=== PATIENT | male | born 1950 | race Caucasian/White ===

== ENCOUNTER 2023-10-05 08:27 | Day surgery (SDC) | payer MEDICARE, OTHER, SELFPAY ==
[2023-10-05] VITALS (8 sets, daily range): BP systolic 119–161; BP diastolic 81–108; BMI 26.3
[2023-10-05 09:51] LABS: Glucose - Point of Care 110 mg/dl (70-99)
[2023-10-05 12:00] LABS: ACT-LR - POC 377 Seconds (116-155)
--- NOTE | 2023-10-05 12:32 | ITS.CL.ABL ---
Copywriter - Ablation
Ablation
Procedure Report:
AFIB ablation:
Mr. Darling is a very pleasant 72 yr old gentleman with h/o persistent Af s/p AF ablation in 08/09/2019 that included pulmonary veins isolation, roof line flutter ablation, focal atrial tach ablation and superior lorna cava isolation, has gone into
recurrent atrial tachycardia / flutter and presented today to the EP lab for atrial fibrillation / flutter ablation.
Date of Procedure:
10/05/2023
Indications:
Recurrent atrial fibrillation / atrial flutter / Atrial tachycardia
Pre-Operative Diagnosis:
Atrial flutter / Atrial tachycardia
Post-Operative Diagnosis:
Atrial flutter / Atrial tachycardia
Procedure Performed:
Redo atrial fibrillation ablation with posterior wall isolation
Left atrial anterior wall atypical atrial flutter ablation for liv-mitral flutter ablation
Biatrial atrial flutter ablation
Performing Physician:
Holden Ferguson MD
Assistants:
EP staff
Anesthesia:
See anesthesia records
Detailed Description of the Procedure:
Written informed consent was obtained from the patient after a full explanation of the risks and benefits of the procedure including the risks of sedation and anesthesia.
The patient was brought to the electrophysiology laboratory in stable condition in fasting state. Continuous electrocardiographic and hemodynamic monitoring was initiated.
The initial rhythm was atrial flutter.
Time out:
The procedure site was meticulously prepared with surgical scrub and allowed to dry with no pooling. Sterile draping was applied to cover the procedure site. The image intensifier was draped with sterile bag and positioned over the patient.
Prior to the start of the procedure a surgical pause was performed with in agreement from anesthesia, EP staff with double identifier and explanation of the procedure, plan and site of the procedure stated with allergies and medications and
pertinent labs reviewed.
After infusion of local anesthetic, vascular access was obtained under ultrasound guidance and sheaths were placed over guide wire as detailed below.
Sheaths:
��������������� Agilis sheath in right femoral vein upgraded from 8Fr in right femoral vein
��������������� 9Fr in right femoral vein
��������������� 7fr in right femoral vein
Catheters:
��������������� ������������� 3.5mm force sensing irrigated Thermocool STSF DF Bidirectional - at locations of HRA, LA, LV and CS.
��������������� ������������� Penta-ray mapping catheter � at locations of RA, LA
��������������� ������������� ICE catheter - at locations of RA, SVC, and RV.
��������������� ������������� Decapolar Bard catheter � at locations of RA and CS
A 7000 units of heparin was given
Intracardiac ECHO:
An 8-[place] AcuNav intracardiac ECHO (ICE) probe was advanced through the 9-[place] sheath in the right femoral vein into the right atrium under fluoroscopic and ICE ultrasound image guidance and a baseline ECHO study was performed. The left atrial
size was severely dilated. There was trace tricuspid regurgitation. There was mild mitral regurgitation. There was small mitral valve noted consistent with at least moderate mitral stenosis. The aortic valve was grossly normal. There was normal left
ventricular size and function. There is trace pericardial effusion. All the four veins were identified and has good flow identified. There was dense spontaneous contrast noted at the mouth of the TISH. No definite clot seen.�
During the procedure, ICE was used for monitoring of complications, guidance of trans-septal puncture, monitor the catheter position and tracking ablation lesions. No change in the pericardial space noted throughout the procedure.
Right atrial flutter mapping:
The flutter was mapped in the right atrium. The CTI line was intact. The earliest point in the right atrium was at the inferior wall of the septum with the rest of the atrium depolarizing passively. The full cycle length of the tachycardia was not
present in the right atrium. With significant amount of tachycardia missing from the cyclic and passive atrial depolarization, decision was made to map the left atrium.
Trans-septal Puncture:
Heparin was initiated and infused to maintain appropriate ACT. A J-tipped guidewire was advanced through the 8-[place] sheath in the right femoral vein into the superior vena cava under fluoroscopic and ICE guidance. The 8-[place] sheath was exchanged
for an Agilis sheath which was advanced into the superior vena cava. A BRK transseptal needle was advanced until the tip was slightly behind the tip of the dilator inside the Agilis sheath. The apparatus was withdrawn until it was in contact with
the fossa ovalis. The position was adjusted based on fluoroscopy and ultrasound images from ICE. Under fluoroscopic, hemodynamic and ICE ultrasound guidance, left atrium was cannulated by advancing the needle. Once atrial septum was cannulated, the
needle was pulled back and a BMW guide wire was advanced through the needle into the left atrium. The guide wire was advanced into the left superior pulmonary vein. Both the sheath and the dilator was advanced into the left atrium. The dilator with
the needle was withdrawn. Blood was aspirated from the Agilis sheath and arterial blood confirmed. The sheath was flushed. Saline injection noted into the left atrium on ICE. The mapping catheter was advanced in the Agilis sheath into the left
pulmonary vein. Left atrial pressure was measured and elevated V wave noted likely showing at least moderate mitral regurgitation.
3D Electroanatomic Mapping:
Using the Pentaray catheter advanced through Agilis sheath into the left atrium, an electroanatomic map (EAM) of the left atrium was created using Carto mapping system. The map was used for localization of catheter position and tacking of ablation
lesions.
The EAM of the left atrium showed 4 pulmonary veins with all 4 veins electrically isolated from the body the LA. The left atrial roof was also completely silent consistent with her previous ablation. No sign of reconnections noted.
It showed extensive scar on the posterior and anterior wall of the LA with only occasional area of atrial electrical activity. The LA was dilated in size.
The atrial flutter was mapped and was appeared to be atypical flutter involving both the atria.� The distal left atrium was out of the tachycardia but the proximal CS was in the tachycardia.� Anterior wall of the left atrium was actively involved in
the tachycardia cycle length with the posterior wall and floor of the atrium only passively depolarized.
Following the EAM, preparation were made for ablation.
Ablation:
Ablation # 1: Left atrial anterior wall tachycardia ablation for liv-mitral flutter ablation
Tachycardia was mapped and was coming from anterior wall of the left atrium at 300 ms. The tachycardia was mapped again and was noted to be mitral valve dependent. Mitral valve was again mapped. Mitral line was done for the mitral isthmus and again
at the anterior wall of the left atrial appendage. Tachycardia degenerated into 360 ms.
Ablation # 2: Biatrial atrial flutter ablation
Tachycardia was again mapped and earliest point was noted to be at the Chantelle bundle escaping from the right side involving both atria. There is no other significant activity left on the left atrial posterior wall and small activity at the left
atrial anterior wall was enough to sustain this arrhythmia.� Leilani bundle was ablated.
Left atrial was again mapped and no activity in the pulmonary veins and posterior wall was noted. Left atrial appendage was still have significant electrical activity.
Ablation #3: Posterior wall isolation for atrial fibrillation
Patient is persistent atrial fibrillation with significant scar in the posterior wall. He was here with recurrent atrial fibrillation/flutter. With still fractionated signal present at the posterior wall, decision was made to isolate the posterior
wall. A series of ablation was placed connecting the left inferior pulmonary vein to the right inferior pulmonary vein at the floor of the left atrium.
Once again sick sinus syndrome noted but was paced with a pacemaker from the right atrium.
The AV jessica functions are deemed within normal range. �
All PVI were rechecked at the end of the case and remained isolated with dissociated and local capture with pacing. Entrance and exit block were demonstrated.
Procedure End
ICE study was done again that showed no epicardial accumulation. No complications noted.
Following the completion of the EP study, catheters were removed. Protamine 40 mg was given at the end of the procedure and ACT was checked repeatedly. The sheaths were removed and hemostasis achieved with manual compression after acceptable ACT is
achieved.
Left atrial Pressure:
Pre-Procedure: Mean LA pressure was 9mmHg
Post-Procedure: Mean LA pressure was 12mmHg
Pre-Procedure: Mean RA pressure was 6mmHg
Estimated Blood loss:
<10 cc
Specimens Removed:
None.
Implants / Devices:
None
Urine output:
None
Packs / Drains/ Tubes:
None
Instrument / Sponge Count Correct:
Yes
Complications of the Procedure:
None
Condition of Patient at Time of Transfer:
Hemodynamically stable with no neurological or vascular compromise.
Summary:
Successful redo atrial fibrillation ablation with posterior wall isolation, Liv-mitral flutter ablation, Biatrial atrial flutter ablation
[2023-10-05 14:47] LABS: ACT-LR - POC > 397 Seconds (116-155)
--- NOTE | 2023-10-05 17:07 | W.PN.UPDATE ---
Update Note
Progress Note Update
Pt seen post AFlutter/LAPW ablation. Right groin site with vascade closure, no ht/bleeding. OOB ambulating, urinating without difficulty. Post EKG SR w/intermittent APacing 80s. Resume eliquis tonight. Followup at [facility] as scheduled. Home today if
groin site/tele remain stable.
== END 2023-10-05 16:05 | disposition home or self-care (01) ==
LOC: CATH 08:27
PROVIDERS: ATTENDING PHYSICIAN Internal Medicine Cardiovascular Disease; FAMILY PHYSICIAN Family Medicine
DX: I48.19 Other persistent atrial fibrillation (principal); I48.4 Atypical atrial flutter; I48.92 Unspecified atrial flutter; Z79.01 Long term (current) use of anticoagulants; E11.40 Type 2 diabetes mellitus with diabetic neuropathy, unspecified; I12.9 Hypertensive chronic kidney disease with stage 1 through stage 4 chronic kidney disease, or unspecified chronic kidney disease; E11.22 Type 2 diabetes mellitus with diabetic chronic kidney disease; N18.9 Chronic kidney disease, unspecified; Z87.891 Personal history of nicotine dependence; I49.5 Sick sinus syndrome
CPT/HCPCS: 93655; C1769; C1894; C1730; C1732; C1766; C1759; 76937; 82962; 85347; 93005; 93656; C1760

== ENCOUNTER → 2023-11-26 06:55 | Day surgery (SDC) | payer MEDICARE, OTHER, SELFPAY ==
[2023-11-26 07:43] VITALS: BMI 25.0
== END ==
LOC: CATH 06:55
PROVIDERS: ATTENDING PHYSICIAN Internal Medicine Cardiovascular Disease; FAMILY PHYSICIAN Family Medicine; OTHER PHYSICIAN Internal Medicine Cardiovascular Disease
DX: I48.0 Paroxysmal atrial fibrillation (principal); I48.4 Atypical atrial flutter; I49.5 Sick sinus syndrome; Z95.0 Presence of cardiac pacemaker; I10 Essential (primary) hypertension; E11.9 Type 2 diabetes mellitus without complications; Z87.891 Personal history of nicotine dependence; Z79.01 Long term (current) use of anticoagulants; Z79.84 Long term (current) use of oral hypoglycemic drugs
CPT/HCPCS: 92960; 93005

== ENCOUNTER → 2024-01-12 07:38 | Outpatient (REF) | payer MEDICARE, OTHER, SELFPAY | LOC: DHCBC/DCA 07:38 | PROVIDERS: ATTENDING PHYSICIAN Nurse Practitioner; FAMILY PHYSICIAN Family Medicine | DX: I48.0 Paroxysmal atrial fibrillation (principal); I49.5 Sick sinus syndrome; Z95.0 Presence of cardiac pacemaker; R06.09 Other forms of dyspnea | CPT/HCPCS: 78452; 93017; A9500; J2785 ==

== ENCOUNTER 2024-06-21 14:04 | Inpatient (IN) | payer MEDICARE, OTHER, SELFPAY ==
[2024-06-21 14:25] VITALS: BP 133/91
[2024-06-21 14:28] VITALS: BMI 24.8
[2024-06-21 15:29] VITALS: BP 139/97
--- NOTE | 2024-06-21 15:38 | W.PN.CD ---
Addendum entered and electronically signed by Johny Dennis MD 06/21/24 16:21:
I saw and examined the patient.
The HEALTH CARE LIAISON's note was reviewed and I agree with the note.
Comment: QTc is challenging with his flutter. But manual measurement looks OK to begin Dofetilide. CrCl 25 will support 125 mcg q12 but if falls to less than 20 then will need to stop dofetilide. Monitor carefully.
Original Note:
Today's Communication / Plan
-
This is the summary. Please see scanned H&P.
Await BMP and initiate dofetilide
Impression / Plan
-
IMPRESSION/PLAN: 73M with paroxysmal atrial fibrillation/flutter status post ablation 08/11/2019, with redo ablation 10/05/2023 for atypical atrial flutter (anterior wall of the left atrium, mitral isthmus, biatrial atrial flutter),
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 He was found to have a high atrial fibrillation burden on his device and endorsed fatigue
and MC
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
Paroxysmal atrial fibrillation
Typical atrial flutter
-He appears to be in typical atrial flutter on telemetry
-Oral anticoagulation: Apixaban 5 mg twice daily, he denies missed doses and abnormal bleeding
-BMP pending, initiation of dofetilide after dose has been calculated based on renal function
-Dofetilide loading per protocol
-If dofetilide does not decrease atrial fibrillation burden, patient is agreeable to repeat ablation
Chronic kidney disease, BMP prior to initiation of dofetilide
[facility] dual-chamber PPM, followed in our device clinic in the outpatient setting
Type 2 diabetes mellitus, continue glipizide
HLD, on pravastatin
Physical Exam
Vital Signs/Labs
Vital Signs
Temp Pulse Resp BP Pulse Ox
97.2 F 102 18 139/97 99
06/21/24 14:28 06/21/24 15:30 06/21/24 14:28 06/21/24 15:29 06/21/24 14:28
06/20/24 06/21/24 06/22/24
06:59 06:59 06:59
Actual Weight 78.4 kg
Physical Exam
Constitutional: No acute distress and Comfortable
EENT: Anicteric and Moist mucous membranes
Cardiovascular: Rhythm & rate is regular, Pedal edema is absent and S1S2 is normal
Respiratory: Respiratory effort normal and Lungs clear to auscul.
GI: Soft, Distention absent, Flat, Non tender and Normal bowel sounds
Neuro/Psych: AO x 3
Other: Skin (Warm and dry)
Data Reviewed
-
Date of Service: June 21, 2024
--- NOTE | 2024-06-21 16:03 | W.CARD.TIKOS ---
Initiate Tikosyn
-
I verify that the patient has not taken any verapamil (Isoptin/Calan), ketoconazole (Nizoral), cimetidine (Tagamet), trimethoprim (Trimpex), trimethoprim/sulfamethoxazole (Bactrim), megesterol (Megace), prochlorperazine (Compazine),
hydrochlorothiazide (HCTZ), dolutegravir (Tivicay) or any Class I or Class III anti-arrhythmic within the last three days
AND
I verify that the patient has not taken amiodarone within the last THREE months, or that the patient's amiodarone plasma concentration is <0.3 mcg/mL.
I have assessed the baseline QTc interval (using QT for heart rate less than 60 bpm) and deemed the patient is appropriate for Dofetilide therapy. I understand that Tikosyn is contraindicated if the QTc is >440msec (500msec in patients with
ventricular conduction abnormalities).
Baseline QTc (in msec): 421
Reason for Administration with Prolonged QTc: Paced Rhythm
Ordering Physician: Holden Ferguson
[2024-06-21 16:12] LABS: Blood Urea Nitrogen 54 mg/dl (9-20); Calcium 9.3 mg/dl (8.4-10.2); Carbon Dioxide 23 mmol/L (22-30); Chloride 106 mmol/L (98-107); Estimated Creatinine Clearance 25 ml/min; Glucose 107 mg/dl (70-99); Potassium 4.7 mmol/L (3.5-5.1); Sodium 141 mmol/L (135-145); eGFR 23.24
[2024-06-21 17:07] VITALS: BMI 24.8
[2024-06-21] MEDS: TIKOSYN 125 MCG PO (18:04)
[2024-06-21 19:11] VITALS: BP 124/87
[2024-06-21] MEDS: OCUVITE SOFTGEL 1 CAP PO (19:26)
[2024-06-21] MEDS: ELIQUIS 5 MG PO (19:26)
[2024-06-21] MEDS: PRAVACHOL 20 MG PO (22:41)
[2024-06-21 22:44] VITALS: BP 136/95
--- NOTE | 2024-06-22 00:31 | PTCARENOTE ---
Received patient at change of shift. Afib on the monitor, HR in the 90-100s. Discussed plan of care with patient, patient verbalizes understanding. No complaints from pt at this time, call glass within reach.
--- NOTE | 2024-06-22 02:07 | DOWNTIME ---
There was a [employer] Client Telecine Operator Downtime on 06/22/2024 from 0100 to 06/22/2023 at 0205 . Downtime documentation of patient's care, including medication administrations, has been reconciled in the electronic record per guidelines. Refer to the
patient's paper chart under the miscellaneous tab to see printed paper medication records and downtime forms.
[2024-06-22 04:18] VITALS: BP 128/92
[2024-06-22 06:00] VITALS: BMI 24.3
[2024-06-22] MEDS: TIKOSYN 125 MCG PO ×2 (06:06→18:27)
--- NOTE | 2024-06-22 07:53 | W.PN.CD ---
Today's Communication / Plan
-
- qtc 487. monitor closely. cautious dosing with creatinine 2.8. will need to follow creatinine closely. Dr Ferguson to review. Repeat creatinine today
plan for CV tomorrow
Impression / Plan
-
IMPRESSION/PLAN: 73M with paroxysmal atrial fibrillation/flutter status post ablation 08/11/2019, with redo ablation 10/05/2023 for atypical atrial flutter (anterior wall of the left atrium, mitral isthmus, biatrial atrial flutter),
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 He was found to have a high atrial fibrillation burden on his device and endorsed fatigue
and MC
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
Paroxysmal atrial fibrillation
atrial flutter
-HR 100
-Oral anticoagulation: Apixaban 5 mg twice daily, he denies missed doses and abnormal bleeding
- dofetilide 125 mg basedon renal function
-per notes If dofetilide does not decrease atrial fibrillation burden, patient is agreeable to repeat ablation
- qtc 487. monitor closely. cautious dosing with creatinine 2.8. will need to follow creatinine closely. Dr Ferguson to review. Repeat creatinine today
Chronic kidney disease, BMP prior to initiation of dofetilide
[facility] dual-chamber PPM, followed in our device clinic in the outpatient setting
Type 2 diabetes mellitus, continue glipizide
HLD, on pravastatin
Physical Exam
Vital Signs/Labs
Vital Signs
Temp Pulse Resp BP Pulse Ox
97.8 F 98 18 128/92 100
06/22/24 04:20 06/22/24 04:18 06/22/24 04:20 06/22/24 04:18 06/22/24 04:20
06/21/24 06/22/24 06/23/24
06:59 06:59 06:59
Actual Weight 76.7 kg
06/21/24 15:33
Physical Exam
Constitutional: No acute distress
Cardiovascular: Rhythm & rate is regular
Respiratory: Respiratory effort normal
GI: Soft
Neuro/Psych: Alert
Data Reviewed
-
Date of Service: June 22, 2024
Medical Decision Making: Reviewed Test Results
Echo: Report Reviewed by me
X-Ray/CT/US/MRI/NUC/PET: Report Reviewed by me
Medical Tests (PFT, Pathology etc): Image Personally Visualized and interpreted
Labs: Labs Reviewed by me
[2024-06-22 08:05] VITALS: BP 146/98
[2024-06-22] MEDS: OCUVITE SOFTGEL 1 CAP PO ×2 (08:51→19:38)
[2024-06-22] MEDS: GLUCOTROL 2.5 MG PO (08:51)
[2024-06-22] MEDS: ELIQUIS 5 MG PO ×2 (08:51→19:38)
[2024-06-22] MEDS: ZYLOPRIM 50 MG PO (08:52)
[2024-06-22] MEDS: NORVASC 5 MG PO (08:52)
[2024-06-22] MEDS: TOPROL XL 50 MG PO (08:52)
--- NOTE | 2024-06-22 09:30 | PTCARENOTE ---
Assumed care of pt from night RN. Pt received awake and alert, Ox3. VSS, CM shows NSR 100's, POX 98% on RA. EKG done after 2nd dose of Tikosyn, shows Qtc of 467. Pt denies any pain or discomfort, ambulating frequently in room.
[2024-06-22 09:39] LABS: Blood Urea Nitrogen 47 mg/dl (9-20); Calcium 9.4 mg/dl (8.4-10.2); Carbon Dioxide 24 mmol/L (22-30); Chloride 103 mmol/L (98-107); Estimated Creatinine Clearance 26 ml/min; Glucose 108 mg/dl (70-99); Phosphorus 4.1 mg/dl (2.5-4.5); Potassium 4.1 mmol/L (3.5-5.1); Sodium 142 mmol/L (135-145); eGFR 24.28
[2024-06-22 09:43] LABS: Albumin 5.1 g/dl (3.5-5.0); Blood Urea Nitrogen 47 mg/dl (9-20); Calcium 9.5 mg/dl (8.4-10.2); Carbon Dioxide 25 mmol/L (22-30); Chloride 103 mmol/L (98-107); Estimated Creatinine Clearance 26 ml/min; Glucose 109 mg/dl (70-99); Potassium 4.3 mmol/L (3.5-5.1); Sodium 143 mmol/L (135-145); eGFR 24.28
[2024-06-22 12:03] VITALS: BP 118/88
--- NOTE | 2024-06-22 15:10 | CM ---
CM following for DC planning needs.
Met w/ patient and spouse at bedside to complete initial assessment.
Pt. resides w/ spouse in a private, 2 story home w/ 4 TON[address]. Functionally, patient is indep. at baseline w/ ADLs, mobility without the use of any assisted device. There is no other DME in the home.
Pt. has RX plan and uses [facility] [address] in [place].
Plan is for DC to home without needs.
Will remain avail.
[2024-06-22 15:32] VITALS: BP 131/98
[2024-06-22 18:49] VITALS: BP 127/85
--- NOTE | 2024-06-22 20:42 | PTCARENOTE ---
Patient received at change of shift resting comfortably in the bed. Patient is without complaints at this time. Atrial fibrillation on monitor and storage bin tender. Patient denies palpitations and/or chest pain. Two hour post Tikosyn ECG completed per order,
Qtc 474. Denies difficulty breathing. Oxygen saturation 97-98% on room air. Plan of care discussed with patient. Call glass within reach. Care ongoing.
[2024-06-22 22:21] VITALS: BP 139/94
[2024-06-22] MEDS: PRAVACHOL 20 MG PO (22:22)
[2024-06-23] VITALS (7 sets, daily range): BP systolic 116–131; BP diastolic 75–99; BMI 24.7
[2024-06-23 02:57] LABS: Albumin 3.9 g/dl (3.5-5.0); Blood Urea Nitrogen 60 mg/dl (9-20); Calcium 8.8 mg/dl (8.4-10.2); Carbon Dioxide 23 mmol/L (22-30); Chloride 106 mmol/L (98-107); Estimated Creatinine Clearance 26 ml/min; Glucose 132 mg/dl (70-99); Phosphorus 4.4 mg/dl (2.5-4.5); Potassium 4.3 mmol/L (3.5-5.1); Sodium 138 mmol/L (135-145); eGFR 24.28
[2024-06-23] MEDS: TIKOSYN 125 MCG PO ×2 (06:18→18:04)
[2024-06-23] MEDS: OCUVITE SOFTGEL 1 CAP PO ×2 (08:20→21:11)
[2024-06-23] MEDS: ELIQUIS 5 MG PO ×2 (08:21→21:11)
[2024-06-23] MEDS: TOPROL XL 50 MG PO (08:21)
[2024-06-23] MEDS: NORVASC 5 MG PO (08:22)
[2024-06-23] MEDS: ZYLOPRIM 50 MG PO (08:28)
--- NOTE | 2024-06-23 11:06 | PTCARENOTE ---
Pt sent for CV today, NPO except meds.
--- NOTE | 2024-06-23 11:21 | W.PN.CD ---
Today's Communication / Plan
-
DCCV today
continue eliquis and tikosyn with monitoring of tele and EKG
Impression / Plan
-
IMPRESSION/PLAN: 73M with paroxysmal atrial fibrillation/flutter status post ablation 08/11/2019, with redo ablation 10/05/2023 for atypical atrial flutter (anterior wall of the left atrium, mitral isthmus, biatrial atrial flutter),
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 He was found to have a high atrial fibrillation burden on his device and endorsed fatigue
and MC
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
Paroxysmal atrial fibrillation and atrial flutter (seems atypical)
-Oral anticoagulation: Apixaban 5 mg twice daily, he denies missed doses and abnormal bleeding
- dofetilide 125 mcg q12hr based on renal function
-high risk medication requires monitoring of EKG and tele during load
- trend Cr
- DCCV today
Chronic kidney disease 4. Stable.
[facility] dual-chamber PPM, followed in our device clinic in the outpatient setting
Type 2 diabetes mellitus, continue glipizide
HLD, on pravastatin
Physical Exam
Vital Signs/Labs
Vital Signs
Temp Pulse Resp BP Pulse Ox
98.2 F 101 20 125/89 98
06/23/24 08:11 06/23/24 10:00 06/23/24 08:11 06/23/24 08:12 06/23/24 08:47
06/22/24 06/23/24 06/24/24
06:59 06:59 06:59
Actual Weight 76.7 kg 78 kg
06/23/24 02:21
Physical Exam
Constitutional: No acute distress
EENT: Moist mucous membranes
Cardiovascular: Pedal edema is absent, JVD pressure is normal, Systolic murmur absent and Rhythm/rate is irregular
Respiratory: Respiratory effort normal and Lungs clear to auscul.
Neuro/Psych: AO x 3
Data Reviewed
-
Date of Service: June 23, 2024
EKG: Other (Afl 97, QTc 482)
Labs: Labs Reviewed by me
--- NOTE | 2024-06-23 12:00 | ITS.CL.CARDI ---
Inverter And Clipper - Cardioversion
Cardioversion
Procedure Report:
Date of Procedure: 06/23/24
Procedure: Cardioversion
Indication: Symptomatic atrial fibrillation
Performing Physician: Baron Valadez MD
Technique: The patient was brought to the holding area. Signed informed consent was obtained. A time out was called and performed. The patient was anesthetized by the anesthesia service. Anticoagulation status was reviewed and appropriate. R2 pads
were placed anteriorly and posteriorly. A 200 J synchronized biphasic shock restored sinus rhythm without significant bradycardia. There were no complications.
Conclusion: Uncomplicated cardioversion from atrial fibrillation to sinus rhythm.
Recommendation: Routine post cardioversion care. Continue fdc anticoagulation.
--- NOTE | 2024-06-23 13:00 | PTCARENOTE ---
Rec'd Pt 1240, s/p successful CV, HR 70-80's in SR. He is A,A+Ox3. VSS
[2024-06-23] MEDS: GLUCOTROL 2.5 MG PO (13:18)
[2024-06-23] MEDS: PRAVACHOL 20 MG PO (21:11)
[2024-06-24 03:38] VITALS: BP 113/82
[2024-06-24 03:49] VITALS: BMI 24.4
[2024-06-24 04:32] LABS: Blood Urea Nitrogen 56 mg/dl (9-20); Calcium 8.6 mg/dl (8.4-10.2); Carbon Dioxide 21 mmol/L (22-30); Chloride 107 mmol/L (98-107); Estimated Creatinine Clearance 26 ml/min; Glucose 86 mg/dl (70-99); Potassium 4.4 mmol/L (3.5-5.1); Sodium 141 mmol/L (135-145); eGFR 24.28
[2024-06-24] MEDS: TIKOSYN 125 MCG PO (06:14)
[2024-06-24 06:58] VITALS: BP 122/83
[2024-06-24] MEDS: GLUCOTROL 2.5 MG PO (08:07)
[2024-06-24] MEDS: ELIQUIS 5 MG PO (08:10)
[2024-06-24] MEDS: TOPROL XL 50 MG PO (08:10)
[2024-06-24] MEDS: ZYLOPRIM 50 MG PO (08:11)
[2024-06-24] MEDS: NORVASC 5 MG PO (08:11)
[2024-06-24] MEDS: OCUVITE SOFTGEL 1 CAP PO (08:15)
[2024-06-24 11:23] VITALS: BP 127/86
--- NOTE | 2024-06-24 12:11 | CM ---
CM following for DC planning needs.
Met w/ patient at bedside. He is hopeful for DC to home today and offers no concerns or needs.
Pt. will need a 3D Rx of Dofetilide. TT to [facility] to notify.
Plan is for home, no needs.
--- NOTE | 2024-06-24 12:18 | W.PN.CD ---
Addendum entered and electronically signed by Will Fairbanks MD 06/24/24 16:28:
73 yo male with PMH of paroxysmal A fib on eliquis, s/p PPM, CKD 4 admitted for tikosyn load. No CP, palps, SOB. Exam with RRR, no murmurs, no edema. Tele: 4-5 beats NSVT.
Discussed with EP. Given NSVT, will discharge off of tikosyn. Office follow up will be arranged to discuss redo ablation.
Original Note:
Today's Communication / Plan
-
continue current meds.
5 beat run of VT noted this am, asymptomatic.
will review tele strips with Dr. Ferguson, EP cardiology.
Impression / Plan
-
IMPRESSION/PLAN: 73M with paroxysmal atrial fibrillation/flutter status post ablation 08/11/2019, with redo ablation 10/05/2023 for atypical atrial flutter (anterior wall of the left atrium, mitral isthmus, biatrial atrial flutter),
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 He was found to have a high atrial fibrillation burden on his device and endorsed fatigue
and MC.
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
Paroxysmal atrial fibrillation and atrial flutter (seems atypical)
- Oral anticoagulation: Apixaban 5 mg twice daily, he denies missed doses and abnormal bleeding.
- dofetilide 125 mcg q12hr based on renal function.
- tolerating with stable QTc on EKG.
- he had a 5 beat run of VT this am, asymptomatic. will review with EP cardiology Dr. Ferguson.
- s/p DCCV 06/23/23, maintaining NSR.
Chronic kidney disease 4 - Stable.
[facility] dual-chamber PPM, followed in our device clinic in the outpatient setting, stable.
Type 2 diabetes mellitus - stable, continue glipizide.
HLD - stable on pravastatin, continue.
Physical Exam
Vital Signs/Labs
Vital Signs
Temp Pulse Resp BP Pulse Ox
97.4 F 79 18 122/83 100
06/24/24 11:23 06/24/24 08:00 06/24/24 11:23 06/24/24 06:58 06/24/24 11:23
06/23/24 06/24/24 06/25/24
06:59 06:59 06:59
Actual Weight 171 lb 15.369 oz 169 lb 12.095 oz
06/24/24 03:44
Physical Exam
Constitutional: No acute distress and Comfortable
EENT: Anicteric and Moist mucous membranes
Cardiovascular: Rhythm & rate is regular
Respiratory: Respiratory effort normal and Lungs clear to auscul.
GI: Soft, Non tender and Normal bowel sounds
Neuro/Psych: AO x 3
Other: Skin and Cardiac Device Site (stable)
Data Reviewed
-
Date of Service: June 24, 2024
Medical Decision Making: Reviewed Test Results
EKG: Tracing Personally Visualized and interpreted
Echo: Report Reviewed by me
Labs: Labs Reviewed by me
Old Records: Reviewed
[2024-06-24 15:27] VITALS: BP 114/75
--- NOTE | 2024-06-24 15:43 | W.DS.TRANS ---
DC Summary - [employer]
-
Discharge Instructions:
Sleep Apnea Risk Low
Discharge Diagnosis/Procedures atypical atrial flutter and paroxysmal atrial
fibrillation, NSVT on Tikosyn so stopped.
Procedure: DCCV (06/23/2024)
Diet Diabetic, Carb Controlled,Low Cholesterol
Activity No restrictions
Driving Restrictions As prior to admission
Bathing Restrictions None
Instructions:
Stand-Alone Forms:
Changes to Home Medications: No
Discharge Medications:
DC Medications w/original date entered in [employer]
allopurinol 100 mg tablet 50 mg PO DAILY Gout 08/08/19
apixaban 5 mg tablet (Eliquis) 5 mg PO BID Blood Clot Prevention/Tx 08/08/19
pravastatin 20 mg tablet 20 mg PO HS High Cholesterol 08/08/19
amlodipine 5 mg tablet 5 mg PO DAILY Blood Pressure 06/05/23
vit C 250 mg-vit E 90 mg-zinc 40 mg-copper 1 [id number] capsule (PreserVision AREDS-2) 1 tab PO BID Supplement 06/05/23
metoprolol succinate 50 mg tablet,extended release 24 hr 50 mg PO DAILY #90 tabs 06/19/23
calcitriol 0.25 mcg capsule [facility] Supplement 06/21/24
glipizide 2.5 mg tablet 2.5 mg PO DAILY Diabetes 06/21/24
Home Medication Changes
Pending Results: No
--- NOTE | 2024-06-24 16:09 | PTCARENOTE ---
Pt received this am with no c/o. Room air, sat 98%. OOB ad domenic in the room and in the hallway. Pt discharged to home with his . Discharge instructions given and reviewed with good understanding.
== END 2024-06-24 16:10 | disposition home or self-care (01) | DRG 309 ==
LOC: IVU 14:04
PROVIDERS: Internal Medicine; Internal Medicine Cardiovascular Disease; Nurse Practitioner Gerontology; ADMITTING PHYSICIAN Internal Medicine Cardiovascular Disease; FAMILY PHYSICIAN Family Medicine
PROC: 5A2204Z Restoration of Cardiac Rhythm, Single (ICD-10-PCS; 2024-06-23)
DX: I48.0 Paroxysmal atrial fibrillation (principal); N18.4 Chronic kidney disease, stage 4 (severe); Z79.01 Long term (current) use of anticoagulants; I48.92 Unspecified atrial flutter; I12.9 Hypertensive chronic kidney disease with stage 1 through stage 4 chronic kidney disease, or unspecified chronic kidney disease; E11.22 Type 2 diabetes mellitus with diabetic chronic kidney disease; E78.5 Hyperlipidemia, unspecified; Z95.0 Presence of cardiac pacemaker; I47.20 Ventricular tachycardia, unspecified; I49.5 Sick sinus syndrome
CPT/HCPCS: 80048; 80069; 92960; 93005

== ENCOUNTER 2024-07-21 06:00 | Day surgery (SDC) | payer MEDICARE, OTHER, SELFPAY ==
[2024-07-18 10:33] VITALS: BMI 26.8
[2024-07-21] VITALS (21 sets, daily range): BP systolic 120–150; BP diastolic 72–94; BMI 25.8
[2024-07-21 06:54] LABS: Glucose - Point of Care 91 mg/dl (70-99)
[2024-07-21 09:25] LABS: ACT-LR - POC 284 Seconds (116-155)
--- NOTE | 2024-07-21 10:51 | PTCARENOTE ---
Post PVI EKG done and sent via retickrt to Dr Ferguson and Ingrid DURON.
[2024-07-21 11:08] LABS: Glucose - Point of Care 113 mg/dl (70-99)
[2024-07-21 11:37] LABS: ACT-LR - POC > 397 Seconds (116-155)
--- NOTE | 2024-07-21 12:51 | ITS.CL.ABL ---
Electrical Inspector - Ablation
Ablation
Procedure Report:
AFIB ablation:
Mr. Darling is a very pleasant 73 yr old gentleman with h/o persistent AF s/p AF ablation in 08/09/2019 that included pulmonary veins isolation, roof line flutter ablation, focal atrial tach ablation and superior vena cava isolation and redo
ablation for atypical atrial flutter who had recurrent atrial fibrillation / flutter failed Tikosyn is recommended a redo AF/AFL ablation.
Date of the Procedure:
07/21/2024
Indications:
Persistent with recurrent atrial fibrillation/ atrial flutter
Pre-Operative Diagnosis:
Persistent with recurrent atrial fibrillation / Atrial flutter
Post-Operative Diagnosis:
Persistent with recurrent atrial fibrillation / Atrial flutter.
Procedure Performed:
Atrial fibrillation ablation with complex fractionated atrial electrograms (CFAE) ablation
Left atrial appendage flutter ablation with roof and Coumadin ridge ablation.
Typical atrial flutter with cavo tricuspid isthmus ablation
Lateral right atrial wall atrial tachycardia / flutter ablation
Performing Physician:
Holden Ferguson MD
Assistants:
EP staff
Anesthesia:
See anesthesia records
Detailed Description of the Procedure:
Written informed consent was obtained from the patient after a full explanation of the risks and benefits of the procedure including the risks of sedation and anesthesia.
The patient was brought to the electrophysiology laboratory in stable condition in fasting state. Continuous electrocardiographic and hemodynamic monitoring was initiated.
The initial rhythm was normal sinus rhythm.
The procedure site was meticulously prepared with surgical scrub and allowed to dry with no pooling. Sterile draping was applied to cover the procedure site. The image intensifier was draped with sterile bag and positioned over the patient. After
infusion of local anesthetic, vascular access was obtained under ultrasound guidance and sheaths were placed over guide wire as detailed below.
Sheath and Catheter Placement:
The following catheters / sheaths were placed.
There was venous stenosis noted on the right femoral vein and dilators along with long sheaths were used.
Sheaths:
��������� 17Fr steerable sheath (Faradrive�, Vermilion Qoof) in right femoral
��������� 9Fr in right femoral vein
Catheters:
��������� VANDANA HD Grid mapping catheter � at locations of RA, LA
��������� Farawave� PFA catheter
��������� ICE catheter -AcuNav - at locations of RA, SVC, and RV.
��������� Decapolar Bard catheter in RA and CS
Intracardiac ECHO:
An 8-Maltese AcuNav intracardiac ECHO (ICE) probe was advanced through the 9-Maltese sheath in the right femoral vein into the right atrium under fluoroscopic and ICE ultrasound image guidance and a baseline ECHO study was performed. The left atrial
size was dilated. There was moderate tricuspid regurgitation. The aortic valve was grossly normal. The aortic valve was grossly normal. There was normal left ventricular size and function. There is trace pericardial effusion. All the four veins were
identified and has good flow identified. There was dense spontaneous contrast noted at the mouth of the TISH. No definite clot seen. All the four veins were identified and has flow identified. �
During the procedure, ICE was used for monitoring of complications, guidance of trans-septal puncture, monitor the catheter position and tracking ablation lesions. No change in the pericardial space noted throughout the procedure.
Electroanatomic mapping of the right atrium:
A pig tail guidewire was advanced through the 8-Maltese sheath in the right femoral vein into the superior vena cava under fluoroscopic and ICE guidance. The 8-Maltese sheath was exchanged for a Faradrive sheath which was advanced into the superior
vena cava.
Using the HD Grid catheter advanced through Faradrive sheath into the right atrium, an electroanatomic map (EAM) of the right atrium was created using VANDANA mapping system with HD Grid.
Ablation # 1: Typical Atrial Flutter Ablation:
Burst pacing from the CS was used to induced flutter. The flutter started spontaneously in between the attempts. Patient was noted to be in atrial flutter 350 ms CL. The CS was showing concentric activation. The Entrainment showed the proximal CS
was close to the circuit but the distal CS was out. The EAM of the tachycardia was created that showed typical counter clockwise flutter.
With anticipation of pulsed field energy deliver at the CTI, a 100 mcg of Nitroglycerin was injected into the RA. �
The ablation was performed using Farawave� PFA catheter from the tricuspid annulus to the IVC ridge. The first application was done in Holmdel formation placing the ablation catheter on the tricuspid isthmus to with ICE visualization.
With first ablation, the flutter terminated into sinus rhythm. Further ablation lesions were placed with the �Flower� shape on the CTI to the Eustachian ridge.
��������������� -Bidirectional block was confirmed across the CTI line with differential pacing.
��������������� -Double potentials were spaced greater than 112 msec apart.
��������������� -The conduction time across the CTI line from proximal CS pacing was 156 msec.
��������������� -EAM of the right atrium was obtained with coronary sinus pacing and showed a line of block at the CTI.
��������������� -The time interval just lateral to the ablation lesions was 156 msec and the lateral wall was 102 msec
��������������� - All these maneuvers confirmed the block at the CTI line.
Ablation # 2: Right atrial lateral wall focal vs micro-reentry Flutter Ablation:
The second flutter was of 320 msec CL and was mapped. The Entrainment from the CTI isthmus before the CTI line formation showed it is not in the CL. The map of the tachycardia puts it at the anterolateral wall of the right atrium.
Using Farapulse PFA catheter, the flower / disc was placed on the lateral wall and ablation applications were placed.
The attempted induction of flutter resulted atrial flutter that was eccentric on CS activation indicating left atrial source.
- Post ablation HV interval was unchanged at 45msec
Then attention was given to atrial fibrillation ablation.
Trans-septal Puncture:
Heparin was initiated and infused to maintain appropriate ACT. A J-tipped guidewire was advanced through the 8-Maltese sheath in the right femoral vein into the superior vena cava under fluoroscopic and ICE guidance. The 9-Maltese sheath was exchanged
for a Faradrive sheath which was advanced into the superior vena cava. A transseptal RF pigtail via Kliqueadrive connect system was utilized to perform the trans-septal puncture. The apparatus was withdrawn until it was in contact with the fossa
ovalis. The position was adjusted based on fluoroscopy and ultrasound images from ICE. Under fluoroscopic, hemodynamic and ICE ultrasound guidance, left atrium was cannulated by applying RF energy. Once atrial septum was cannulated, the pigtail wire
was advanced through the needle into the left atrium. The guide wire was advanced into the left superior pulmonary vein. Both the sheath and the dilator was advanced into the left atrium. The dilator with the needle was withdrawn. Blood was
aspirated from the Faradrive sheath and arterial blood confirmed. The sheath was flushed. Saline injection noted into the left atrium on ICE. The mapping catheter was advanced in the sheath into the left pulmonary vein. Left atrial pressure was
measured.
3D Electroanatomic Mapping:
Using the HD Grid catheter advanced through sheath into the left atrium, an electroanatomic map (EAM) of the left atrium was created using [employer] VANDANA mapping system. The map was used for localization of catheter position and tacking of ablation
lesions.
The EAM of the left atrium showed 4 pulmonary veins with all 4 veins electrically isolated. The posterior wall was also silent and isolated. The anterior mitral line was also checked with disconnected signals with doubles on Grid of over 170 msec.
There was wide area of roof with active signals and CFAEs were noted at the roof and anterior junction of TISH and LA. There were conduction noted at the Coumadin ridge with electric signals traversing from anterior of the TISH to the roof and
Coumadin ridge to create a loop around the TISH.
The LA was dilated in size.
Following the EAM, preparation were made for ablation.
Ablation:
Ablation # 3: Complex Fractionated Atrial electrograms ablation/ Substrate modification
The PPM was working normally so Glycopyrrolate was not injected. Using SourceTour pulsed wave ablation system, the Faradrive in Flower/Disc formation was placed at the roof between TISH and the left superior pulmonary vein, where CFAEs were noted.
The application of pulsed field energy eliminated the fractionated signals. Additional ablation were placed on the anterior wall where the CFAEs were noted. The scar was connected to the previously formed anterior line.
Ablation # 4: Left atrial appendage flutter ablation with roof and Coumadin ridge ablation.
The previously seen flutter was studied and thought to be revolving around the TISH with active signals at the Coumadin ridge. Multiple applications were placed on the Coumadin ridge and connected to the LA roof. Additional ablations were placed
inside the LSPV with Faradrive in Holmdel formation and pushed to the anterior section against the ridge.
The TISH had healthy signals and was not isolated.
EPS and Confirmation of the PVI and bidirectional block:
Following achievement of entrance block at the pulmonary veins, pacing from the HD catheter in each of the four veins at 10 milliamps for 2 milliseconds showed entrance and exit block. All PVI were rechecked at the end of the case and remained
isolated with dissociated and local capture with pacing. Entrance and exit block were demonstrated in all veins.
Procedure End
ICE study was done again that showed no change in epicardial accumulation. No complications noted.
Following the completion of the EP study, catheters were removed. Protamine 40 mg was given at the end of the procedure and ACT was checked repeatedly. The sheaths were removed and hemostasis achieved with VASCADE and manual compression after
acceptable ACT is achieved.
Left atrial Pressure:
Mean LA pressure was 15mmHg
Mean LR pressure was 6mmHg
Estimated Blood loss:
<10 cc
Specimens Removed:
None.
Implants / Devices:
None
Urine output:
None
Packs / Drains/ Tubes:
None
Instrument / Sponge Count Correct:
Yes
Complications of the Procedure:
None
Condition of Patient at Time of Transfer:
Hemodynamically stable with no neurological or vascular compromise.
Summary:
Successful atrial fibrillation ablation with Atrial fibrillation ablation with complex fractionated atrial electrograms (CFAE) ablation and substrate modification, Left atrial appendage flutter ablation with roof and Coumadin ridge ablation, Typical
atrial flutter with cavo tricuspid isthmus ablation and Lateral right atrial wall atrial tachycardia / flutter ablation
Figures from the Procedure:
Figure 1: The electroanatomic mapping (EAM) of the left atrium with bipolar voltage (purple indicates normal electrical activity with collado as no myocardial muscle electric activity indicating a line of block or scar.
--- NOTE | 2024-07-21 14:29 | W.PN.UPDATE ---
Update Note
Progress Note Update
73 yo WM s/p PVI/AFL ablation (same day). He denies cp, sob, rachid diet, voiding, amb w/o dizziness, EKG SR, R fem site VASCADE closure, c/d/i soft. He will resume Eliquis tonight and continue metoprolol. Activity restrictions reviewed. He will f/u [facility]
in 2 weeks. He is for d/c home after 215pm
== END 2024-07-21 14:30 | disposition home or self-care (01) ==
LOC: CATH 06:00
PROVIDERS: ATTENDING PHYSICIAN Internal Medicine Cardiovascular Disease; FAMILY PHYSICIAN Family Medicine
DX: I48.0 Paroxysmal atrial fibrillation (principal); I48.92 Unspecified atrial flutter; I47.19 Other supraventricular tachycardia; Z79.899 Other long term (current) drug therapy; Z79.01 Long term (current) use of anticoagulants; I49.5 Sick sinus syndrome; I12.9 Hypertensive chronic kidney disease with stage 1 through stage 4 chronic kidney disease, or unspecified chronic kidney disease; E78.5 Hyperlipidemia, unspecified; Z79.84 Long term (current) use of oral hypoglycemic drugs; E11.22 Type 2 diabetes mellitus with diabetic chronic kidney disease; M10.9 Gout, unspecified; Z87.891 Personal history of nicotine dependence; N18.4 Chronic kidney disease, stage 4 (severe); Z95.0 Presence of cardiac pacemaker; Z98.890 Other specified postprocedural states
CPT/HCPCS: 93655; C1894; C1732; C1730; C1769; C1892; C1766; C1759; 82962; 85347; 86850; 86900; 86901; 93005; 93656; 93657; C1733; C1760; Q9967